=== PATIENT | male | born 1990 | race African-American/Black ===

== ENCOUNTER 2018-06-25 20:44 | Inpatient (IN) | payer SELFPAY ==
[2018-06-25 21:02] LABS: Actual Bicarbonate (HCO3a) 22.8 mEq/L (22-28); Analyzer IN Cardio ER; Base Excess (BEa) -3.2 mEq/L (-2.0 to +3.0); CO2 Tension 44.2 mmHg (35.0-45.0); Calcium, Ionized 1.16 mmol/L (1.12-1.30); Carboxyhemoglobin (COHb) 0.3 gm% (0.0-3.0); Hemoglobin (Hb) 16.6 g/dL (14.0-18.0); O2 Tension (PaO2) 143.4 mmHg (80.0-100.0); Potassium - ABG Lab 3.6 mmol/L (3.70-5.30); pH, Arterial 7.33 (7.35-7.45)
[2018-06-25 21:03] LABS: Puncture Site LRA
[2018-06-25 21:11] LABS: #Basophils 0.1 thou/uL (0.0-0.2); #Eosinphils 0.1 thou/uL (0.0-0.7); #Monocytes 0.8 thou/uL (0.11-0.59); #Neutrophils 11.3 thou/uL (1.40-6.50); %Basophils 0.5 % (0.0-1.0); %Eosinophils 0.9 % (0.0-10.0); %Lymphocytes 7.5 % (21.0-51.0); %Monocytes 5.8 % (0.0-10.0); %Neutrophils 85.3 % (42.0-75.0); Hemoglobin 16.4 g/dL (14.0-18.0); Mean Corpuscular HGB CONC 35.9 g/dL (32.0-36.0); Mean Corpuscular Hemoglobin 32.6 pg (27.0-31.0); Mean Corpuscular Volume 90.9 fL (78.0-98.0); Mean Platelet Volume 7.9 fL (7.4-10.4); Platelet Count 217 thou/uL (130-400); Red Blood Cell (RBC) Count 5.03 mill/uL (4.70-6.10); White Blood Cell (WBC) Count 13.3 thou/uL (4.8-10.8)
[2018-06-25 21:33] LABS: ALT (SGPT) 25 U/L (8-55); AST (SGOT) 25 U/L (5-34); Albumin 4.4 g/dL (3.5-5.0); Alkaline Phosphatase 62 U/L (40-150); Anion Gap 10 mmol/L (10-20); BUN (Urea Nitrogen) 12 mg/dL (8.9-20.6); Bilirubin, Total 0.6 mg/dL (0.2-1.2); Calc. Creatinine Clearance 0 mL/min (70-130); Calcium 8.7 mg/dL (7.8-10.44); Carbon Dioxide 23 mmol/L (22-29); Chloride 112 mmol/L (98-107); Estimated GFR-MDRD 84; Glucose 205 mg/dL (70-105); Potassium 3.4 mmol/L (3.5-5.1); Protein, Total 7.4 g/dL (6.0-8.3); Sodium 142 mmol/L (136-145)
--- NOTE | 2018-06-25 21:36 | RAD ---
RADIOGRAPH CHEST 1 VIEW: 06/25/18 HISTORY: 27-year-old male with dyspnea. FINDINGS: There are no air space densities, pulmonary edema, pneumothorax, or cardiomegaly. The lateral costop hrenic angles are sharp. IMPRESSION: No acute cardiopulmonary findings. nilam [] POS: VLADIMIR
[2018-06-25 21:37] LABS: CKMB 5.4 ng/mL (0-6.6); Troponin I Less than 0.010 ng/mL (< 0.028)
[2018-06-25] MEDS ORDERED: Enoxaparin Sodium 40 MG/0.4 ML SYRINGE SC SCH (23:45)
[2018-06-25] MEDS ORDERED: Ondansetron HCl/PF 4 MG/2 ML Vial IVP PRN (23:56)
[2018-06-25] MEDS ORDERED: Acetaminophen 325 MG TAB PO PRN (23:56)
[2018-06-26 01:39] VITALS: BMI 30.4
[2018-06-26] MEDS: Sodium Chloride 0.9% 1,000 ML IV SCH ×2 (01:47→12:52)
[2018-06-26 04:44] LABS: Anion Gap 17 mmol/L (10-20); BUN (Urea Nitrogen) 12 mg/dL (8.9-20.6); Calc. Creatinine Clearance 136 mL/min (70-130); Calcium 9.3 mg/dL (7.8-10.44); Carbon Dioxide 17 mmol/L (22-29); Chloride 111 mmol/L (98-107); Estimated GFR-MDRD Greater than 90; Glucose 153 mg/dL (70-105); Potassium 4.5 mmol/L (3.5-5.1); Sodium 140 mmol/L (136-145)
[2018-06-26 05:01] LABS: Band 14 % (5-11); Hemoglobin 16.4 g/dL (14.0-18.0); Lymphocytes 2 % (21-51); MDiff Complete? YES; Mean Corpuscular HGB CONC 35.7 g/dL (32.0-36.0); Mean Corpuscular Hemoglobin 32.7 pg (27.0-31.0); Mean Corpuscular Volume 91.6 fL (78.0-98.0); Mean Platelet Volume 8.5 fL (7.4-10.4); Monocytes 1 % (0-10); Neutrophil 83 % (42-75); Platelet Count 220 thou/uL (130-400); RBC Distribution Width 11.3 % (11.5-14.5); White Blood Cell (WBC) Count 12.6 thou/uL (4.8-10.8)
--- NOTE | 2018-06-26 05:46 | HP ---
PRIMARY CARE PHYSICIAN: Patient has no PCP. CODE STATUS: FULL CODE. TIME OF EVALUATION: 11:45 p.m. CHIEF COMPLAINT: Severe shortness of breath. HISTORY OF PRESENT ILLNESS: This is a 27-year-old male patient with past medical history of asthma, patient does not follow up with any doctor, but gets his medications and use of Ventolin as a rescue inhaler. Patient reported as he has been having shortness of breath for the past few days but since yesterday it was very severe, no improvement with the Ventolin. No clear triggers or alleviating fac tors. No signs of infection, patient was met by EMS, was given epinephrine, magnesium, DuoNebs, plac ed on BiPAP, and patient has had significant improvement. Initial ABG was 7.33 with CO2 of 44 and th en oxygen 143. The patient is still wheezing, with very little air movement, given a BiPAP. For jeff t reason, we will place him in IMCU, he does report feeling better. We will continue with steroids, nebulizers, and BiPAP would be able to step down. Respiratory treatment probably early in the [facility], may need pulmonary for assistance with this case. REVIEW OF SYSTEMS: Constitutional: No fever or chills. Patient reports generalized weakness. Resp iratory: Patient reported cough. No sputum production, shortness of breath. Cardiovascular: No ch est pain, palpitation, shortness of breath. Gastrointestinal: No nausea, vomiting, diarrhea, or abd ominal pain. S[employer]ANT: No dizziness, headache, or feeling lightheaded. Genitourinary: No burning with urination. Extremities: No leg swelling. All other systems were reviewed and negative except for t he findings mentioned above. PAST MEDICAL HISTORY: Asthma, obesity. SOCIAL HISTORY: No drugs or no alcohol. PAST SURGICAL HISTORY: No surgical history. PSYCHIATRIC HISTORY: No psych history. FAMILY HISTORY: Asthma in the paternal side. Mother with hypertension. DRUG ALLERGIES: No known drug allergies. REPORTED MEDICATIONS: Albuterol as a rescue inhaler. PHYSICAL EXAMINATION: VITAL SIGNS: Pulse 133, respiratory rate was 18, oxygen saturation 99 on BiPAP. Blood pressure 115/ 71. GENERAL APPEARANCE: Patient is in less discomfort, but still with tachypneic, with respiratory distr ess, oriented. HEENT: Eyes: Normal conjunctivae, moist mucous mucosa, anicteric. NECK: No JVD on BiPAP. LUNGS: Decreased bilateral air entry with wheezing, no rales, symmetric expansion. CARDIOVASCULAR: Tachycardic, regular rate and rhythm. No murmurs, no gallop, no edema. ABDOMEN: Soft, normal bowel sounds. MUSCULOSKELETAL: Baseline range of motion and strength. No tenderness. SKIN: Warm and intact. No pallor, no rash, no redness. Peripheral pulses are present. Capillary r efill seems to be intact. NEUROLOGIC: Baseline sensory. No evidence of any new focal weakness. Baseline speech. Cranial ner ve seems to be intact. PSYCHIATRIC: Patient is in good mood, no anxiety oriented. Optimal judgment. IMAGING: EKG was reviewed by myself. Patient has sinus tachycardia with pulmonary disease pattern. Ventricular rate 128, SC 148, QRS 76, QT corrected 438. Chest x-ray was reviewed, the patient had n o acute cardiopulmonary findings. LABORATORY DATA: Reviewed. The patient has white count of 13.3 with hemoglobin 16, MCV 90, platelet count 217, neutrophils 85, lymphocytes 7.5. Blood gas was done 7.33 with oxygen at 143, pCO2 of 44. 2. This was done on BiPAP at 12/6 with in spite oxygen of 30%. Chemistry: Sodium 142, potassium 3. 4, chloride 112, carbon dioxide 23, anion gap 10, BUN 12, creatinine 1.27, GFR 84, glucose 205, lacti c acid 1.8. Calcium 9.7, total bilirubin 0.6. LFTs were normal. Troponin was negative. Beta natri uretic peptide was normal. ASSESSMENT AND PLAN: The patient will be placed in the hospital with following medical problems: 1. Severe asthma attack/status asthmaticus, patient was then improving with initial treatment with B iPAP due to respiratory failure. On nebs, steroids, magnesium, patient has some improvement after ar rival to the ER, we will place in IMCU. We will monitor closely. Mental status is good. Patient wa s full oriented, still having some respiratory distress during my interview. May need pulmonary assi stant in the morning. 2. Obesity, advised to loss weights. 3. Acute hypoxic and hypercarbic respiratory failure. Patient has an ABG. He is not on respiratory alkalosis as suspected likely due to severe bronchospasm and air trapping. Treatment as above, we w ill monitor and patient has started to feel better now. 4. Deep venous thrombosis prophylaxis.
--- NOTE | 2018-06-26 14:39 | PDOC.PN ---
- Subjective Encounter Start Date: 06/26/18 Encounter Start Time: 10:00 Pt seen for followup re: asthma exacerbation. feels better. Cough+, minimal sputum. Wheezing+ - Objective Resuscitation Status: Resuscitation Status FULL:Full Resuscitation MAR Reviewed: Yes Vital Signs & Weight: Vital Signs (12 hours) Temp Pulse Resp BP Pulse Ox 06/26/18 13:30 79 14 97 06/26/18 11:16 98.0 F 82 18 144/68 H 94 L 06/26/18 09:33 81 14 99 06/26/18 08:00 98.5 F 83 19 97 06/26/18 07:27 98.5 F 83 19 136/75 97 06/26/18 06:00 80 100 06/26/18 05:52 100 06/26/18 05:49 76 23 H 100 06/26/18 04:00 98.2 F 85 26 H 148/73 H 98 Weight Weight 206 lb 6.4 oz I&O: 06/25/18 06/26/18 06/27/18 06:59 06:59 06:59 Intake Total 1070 Output Total 350 Balance 720 Result Diagrams: 06/26/18 02:56 06/26/18 02:56 EKG Reviewed by me: Yes (Tele: NSR) Phys Exam - Physical Examination Obese HEENT: moist MMs, sclera anicteric, oral pharynx no lesions, 2+ tonsils Neck: no nodes, no JVD, supple, full ROM Respiratory: no rales, no rhonchi, wheezing present Cardiovascular: RRR, no rub S1, s2 Gastrointestinal: soft, non-tender, no distention, positive bowel sounds Neurological: moves all 4 limbs Psychiatric: normal affect, A&O x 3 Dx/Plan (1) Asthma exacerbation Code(s): J45.901 - UNSPECIFIED ASTHMA WITH (ACUTE) EXACERBATION Status: Acute Comment: Improving, continue oxygen, steroids and bronchodilators (2) Hypokalemia Code(s): E87.6 - HYPOKALEMIA Status: Resolved - Plan respiratory therapy, out of bed/ambulate, DVT proph w/lovenox * . Review of Systems - Review of Systems Constitutional: negative: fever, chills, sweats, weakness, malaise Respiratory: Cough, SOB with Excertion, Sputum, Wheezing. negative: Dry, Shortness of Breath, Hemoptysis, Pleuritic Pain Cardiovascular: negative: chest pain, palpitations, orthopnea, paroxysmal nocturnal dyspnea, edema, light headedness Gastrointestinal: negative: Nausea, Vomiting, Abdominal Pain, Diarrhea, Constipation, Melena, Hematochezia Genitourinary: negative: Dysuria, Frequency, Incontinence, Hematuria, Retention Skin: negative: Rash, Lesions, Eber, Bruising - Medications/Allergies Allergies/Adverse Reactions: Allergies Allergy/AdvReac Type Severity Reaction Status Date / Time No Known Drug Allergies Allergy Verified 06/26/18 00:51 Medications: Current Medications Acetaminophen (Tylenol) 650 mg PO Q4H PRN PRN Reason: Headache/Fever or Pain Albuterol/Ipratropium (Duoneb) 3 ml NEB [id number] [facility] Last Admin: 06/26/18 13:30 Dose: 3 ml Methylprednisolone Sodium Succinate (Solu-Medrol) 40 mg IVP Q6HR [facility] Last Admin: 06/26/18 13:02 Dose: 40 mg Ondansetron HCl (Zofran) 4 mg IVP Q6H PRN PRN Reason: Nausea/Vomiting
--- NOTE | 2018-06-26 23:53 | CON ---
DATE OF CONSULTATION: 06/26/2018 HISTORY OF PRESENT ILLNESS: Mr. Mclain is a wonderful pleasant 27-year-old male with asthma. He says he has had it all of his life. He has never had complete control of his asthma, never had to go longer than a week without having to use an albuterol inhaler. He presented with severe asthma flare and this dramatically improved by his history. He had exercise induced asthma when he was very young, but this improved as he got older. SOCIAL HISTORY: Non-smoker, nondrinker, does not use drugs. ALLERGIES: He has no drug allergies. FAMILY HISTORY: Negative for lung disease in early age. REVIEW OF SYSTEMS: 10 point system review completed; otherwise negative. MEDICATIONS: He is only on albuterol p.r.n. PHYSICAL EXAMINATION: GENERAL: Mr. Mclain is a wonderful pleasant 27-year-old male with asthma. VITAL SIGNS: He is afebrile, heart rate is now down in the 70s. He was tachycardic when he arrived as expected with an asthma exacerbation, respiratory rates in the teens, oximetry is 96. HEENT: Pupils are equal. Sclerae is anicteric. NECK: Supple, no lymphadenopathy. LUNGS: Remarkable for end expiratory wheezes. HEART: Regular rhythm, no S3. ABDOMEN: Soft and nontender. EXTREMITIES: Without clubbing, cyanosis, or edema. LABORATORY DATA: White count 12.6, hemoglobin 16.4, platelets 220,000. Sodium 140, potassium is 4.5, chloride 111, bicarbonate 17, BUN 12, creatinine 1.1. IMPRESSION AND PLAN: Status asthmaticus, improving. prednisone in the morning. I will be happy to follow him as an outpatient. I will probably get him a sample of Breo from the office tomorrow to hopefully facilitate better control of his asthma as an outpatient. I have encouraged him to follow up with me. We will get peak flow meter for him at the bedside. This is a 50 minute consult with greater than 50% of time spent on unit with coordination of care. KEVIN
[2018-06-27] MEDS ORDERED: predniSONE 20 MG TAB PO SCH (08:00)
[2018-06-27 11:27] VITALS: BP 131/69; TEMP 98.4
--- NOTE | 2018-06-27 14:37 | DIS ---
DATE OF ADMISSION: 06/25/2018 DATE OF DISCHARGE: 06/27/2018 PRIMARY CARE PROVIDER: None. DISCHARGE DIAGNOSIS: Status asthmaticus. CONDITION OF PATIENT ON THE DAY OF DISCHARGE: Stable. I assessed Mr. Mclain on the day of discharge . He denies any chest pain or shortness of breath. Vital signs are stable. S1 and S2 are heard, re gular. He has occasional expiratory wheeze. CONSULTATIONS DURING THIS HOSPITALIZATION: Pulmonology, Dr. Ralph. DISCHARGE MEDICATIONS: Patient to use Breo inhaler, DuoNeb q.i.d., and prednisone 40 mg for 5 days a nd then 20 mg daily until seen by Pulmonology service in office. HOSPITAL COURSE: Mr. Mclain is a pleasant 27-year-old gentleman, who was admitted to [facility] on 06/25/2018 for status asthmaticus. Please refer to Dr. Dai's history and physical note dated 06/26/2018 for further details. He was initially treated with BiPAP. He also re ceived bronchodilators, oxygen, and steroids. He improved clinically. He was seen by Pulmonology Se holliday. He is being discharged home in a stable condition. DISCHARGE DESTINATION: Home. TOTAL AMOUNT OF TIME SPENT COORDINATING THIS DISCHARGE: 32 minutes.
--- NOTE | 2018-06-27 16:43 | PRG ---
DATE OF SERVICE: 06/27/2018 SUBJECTIVE: Ms. Sreedhar Mclain feels much better. He has a nebulizer at home. He says he feels mu ch better. PHYSICAL EXAMINATION LUNGS: He has bilateral diffuse wheezes. If he were in the office today, he is not having enough asthma that I would put him in the hospital. Recommend that we discharge him home on slow prednisone taper with 40 mg for 5 days, then 20 mg a da y. I have given him 2 samples of Conde 100/25 from my office to take 1 puff a day. We will use a n ebulizer twice a day until he comes to see me in 2 weeks. I have encouraged him to call me should anything change.
== END 2018-06-27 15:25 | disposition home or self-care (01) | DRG 189 ==
LOC: ERS 20:44 → IMCU/EMU 23:00
PROVIDERS: ADMIT Hospitalist; ATTEND Hospitalist
DX: J96.01 Acute respiratory failure with hypoxia (principal); J45.902 Unspecified asthma with status asthmaticus; J96.02 Acute respiratory failure with hypercapnia; E66.9 Obesity, unspecified; E87.6 Hypokalemia
CPT/HCPCS: 36415; 71045; 80048; 80053; 82553; 82805; 83605; 83880; 84484; 85025; 93005; 94640; 94660; 94760; J2920; J7506; J7620